=== PATIENT | male | born 2000 | race American Indian/Alaskan Native ===

== ENCOUNTER 2018-01-22 13:58 | Emergency (ER) | payer OTHER ==
[2018-01-22 14:25] VITALS: TEMP 98.7; BMI 23.0
[2018-01-22] MEDS ORDERED: Sodium Chloride 0.9% 1,000 ML IV SCH (15:00)
--- NOTE | 2018-01-22 15:23 | ED PDOC ---
Arrival/HPI - General Chief Complaint: Abdominal Pain Time Seen by Provider: 01/22/18 14:58 Historian: Patient - History of Present Illness Narrative History of Present Illness (Text): 01/22/18 15:32 17 year old male, with no significant past medical history, presents to the Emergency department with epigastric pain described as cramping since this morning. Patient informs associated vomiting and diarrhea. Patient informs black stool since onset. Patient informs similar episodes in the past, which resolved spontaneously. Patient denies any fever, sweats, shortness of breath, cough, chest pain, headache, dizziness, hematemesis, hematochezia, or any other complaints. Time/Duration: 1-3 hours Symptom Onset: Gradual Symptom Course: Unchanged Quality: Aching, Cramping Activities at Onset: Light Context: Home Past Medical History - Provider Review Nursing Documentation Reviewed: Yes - Travel History If Yes, travel location?: [place] - Psychiatric Hx Substance Use: Yes - Surgical History Other/Comment: left wrist fx Family/Social History - Physician Review Nursing Documentation Reviewed: Yes Family/Social History: No Known Family HX Smoking Status: Light Smoker < 10 Cigarettes Daily Hx Alcohol Use: Yes Frequency of alcohol use: Socially Hx Substance Use: Yes Allergies/Home Meds Allergies/Adverse Reactions: Allergies No Known Allergies Allergy (Verified 01/22/18 14:25) Home Medications: Home Meds Medication Instructions Recorded Confirmed No Known Home Med 01/22/18 01/22/18 Review of Systems - Physician Review All systems were reviewed & negative as marked: Yes - Review of Systems Constitutional: absent: Fevers, Night Sweats Respiratory: absent: SOB, Cough Cardiovascular: absent: Chest Pain Gastrointestinal: Abdominal Pain (epigastric), Diarrhea, Nausea, Vomiting (1 episode this morning) Neurological: absent: Headache, Dizziness Physical Exam - Physical Exam Narrative Physical Exam (Text): 01/22/18 15:27 Gen: VS reviewed, alert, well developed, well nourished, nontoxic, mild distress ENT: normal pharynx Eye: EOMI, PERRL Neck: no JVD, supple, no adenopathy CV: regular rate, regular rhythm, no rubs,no murmur, no gallops, S1, S2, pulses equal and strong Pulm: mild to moderate distress, clear to auscultation, no wheeze, no rhonchi, breath sounds equal, no rales Abd: LUQ and epigastric tenderness Ext: no edema Skin: good color, no rash, no cyanosis Psych: responds appropriately to questions, normal affect Neuro: oriented x3, CN2-12 intact grossly, motor intact, sensation intact Vital Signs Reviewed: Yes Vital Signs Temp Pulse Resp BP Pulse Ox 01/22/18 14:19 98.7 F 63 16 116/70 97 Temperature: Afebrile Blood Pressure: Normal Pulse: Regular Respiratory Rate: Normal Appearance: Positive for: Well-Appearing, Non-Toxic, Comfortable Pain Distress: Mild Mental Status: Positive for: Alert and Oriented X 3 Medical Decision Making ED Course and Treatment: 01/22/18 15:30 Impression: 17 year old male presents to the Emergency department with epigastric abdominal pain. Plan: -- CT of abdomen and pelvis -- Labs -- Toradol -- Zofran -- Reassess and disposition Progress Notes: 01/22/18 19:36 patient feels much better and ready to go home. patient was seen for upper abdominal pain, vomiting and diarrhea. CT negative. Patient remained stable throughout ED course and discharged home. Patient to return for any new or worsening symptoms and recommended to follow up with GI. hemoccult negative, stool brown: 1571 7L 08-20 - Lab Interpretations Lab Results: 01/22/18 15:30 01/22/18 15:30 Lab Results 01/22/18 15:30: Sodium 142, Potassium 3.9, Chloride 105, Carbon Dioxide 24, Anion Gap 17, BUN 12, Creatinine 1.0, Est GFR ( Amer) > 60, Est GFR (Non- Af Amer) > 60, Random Glucose 86, Calcium 9.8, Total Bilirubin 0.9, AST 28, ALT 27, Alkaline Phosphatase 55, Total Protein 8.3, Albumin 4.8, Globulin 3.4, Albumin/Globulin Ratio 1.4, Lipase 115 01/22/18 15:30: WBC 3.7 L, RBC 5.22, Hgb 16.5, Hct 45.0, MCV 86.2, MCH 31.6, MCHC 36.7, RDW 12.1, Plt Count 207, MPV 10.1, Gran % 65.8, Lymph % (Auto) 28.0, [place] % (Auto) 5.4, Eos % (Auto) 0.5 L, Baso % (Auto) 0.3, Gran # 2.44, Lymph # ( Auto) 1.0 L, [place] # (Auto) 0.2, Eos # (Auto) 0.0, Baso # (Auto) 0.01 - RAD Interpretation Narrative RAD Interpretations (Text): 01/22/18 19:28 Ct of Abdomen/Pelvis reviewed by radiologist, shows: No acute findings or significant abnormalities are noted within the abdomen and pelvis. Radiology Orders: 01/22/18 14:59 ABDOMEN & PELVIS [ABD PELVIS PO & IV CONTRAST] [CT] Stat [place] Hand: Radiologist - Medication Orders Current Medication Orders: Sodium Chloride (Sodium Chloride 0.9%) 1,000 mls @ 150 mls/hr IV .[id number] ANNETTA Last Admin: 01/22/18 15:20 Dose: 150 mls/hr eMAR Start Stop Document 01/22/18 15:20 EQ (Rec: 01/22/18 15:21 EQ [facility]) Intravenous Solution Start Date 01/22/18 Start Time 15:21 Discontinued Medications Ketorolac Tromethamine (Toradol) 30 mg IVP STAT STA Stop: 01/22/18 15:00 Last Admin: 01/22/18 15:21 Dose: 30 mg MAR Pain Assessment Document 01/22/18 15:21 EQ (Rec: 01/22/18 15:21 EQ [facility] Pain Reassessment Is this a pain reassessment? No Sleep Is patient sleeping during reassessment? No Presence of Pain Presence of Pain Yes IVP Administration Document 01/22/18 15:21 EQ (Rec: 01/22/18 15:21 EQ [facility] Charges for Administration # of IVP Administrations 1 Ondansetron HCl (Zofran Inj) 4 mg IVP STAT STA Stop: 01/22/18 15:00 Last Admin: 01/22/18 15:21 Dose: 4 mg IVP Administration Document 01/22/18 15:21 EQ (Rec: 01/22/18 15:21 EQ [facility] Charges for Administration # of IVP Administrations 1 - Scribe Statement The provider has reviewed the documentation as recorded by the Scribe Pipo Izaguirre, training with Rufino All medical record entries made by the Scribe were at my direction and personally dictated by me. I have reviewed the chart and agree that the record accurately reflects my personal performance of the history, physical exam, medical decision making, and the department course for this patient. I have also personally directed, reviewed, and agree with the discharge instructions and disposition. Disposition/Present on Arrival - Present on Arrival Any Indicators Present on Arrival: No History of DVT/PE: No History of Uncontrolled Diabetes: No Urinary Catheter: No History of Decub. Ulcer: No History Surgical Site Infection Following: None - Disposition Have Diagnosis and Disposition been Completed?: Yes Diagnosis: Abdominal pain Disposition: HOME/ ROUTINE Disposition Time: 19:38 Patient Plan: Discharge Condition: GOOD Discharge Instructions (ExitCare): Acute Abdomen (Belly Pain), Adult (DC) Print Language: INDONESIAN Additional Instructions: Return for any new or worsening symptoms. Follow up with a tip stitcher as discussed. CATRACHO COVARRUBIAS, thank you for letting us take care of you today. Your provider was Dr.Lamont Ballard and you were treated for upper abdominal pain. The emergency medical care you received today was directed at your acute symptoms. If you were prescribed any medication, please fill it and take as directed. It may take several days for your symptoms to resolve. Return to the Emergency Department if your symptoms worsen, do not improve, or if you have any other problems. Please contact your doctor or call one of the physicians/clinics you have been referred to that are listed on the Patient Visit Information form that is included in your discharge packet. Bring any paperwork you were given at discharge with you along with any medications you are taking to your follow up visit. Our treatment cannot replace ongoing medical care by a primary care provider outside of the emergency department. Thank you for allowing the [facility] team to be part of your care today. If you had an X-Ray or CT scan: A Radiologist will review the ED reading if any change in treatment is needed we will contact you. If you had a blood, urine, or wound culture: It will take several days for the results, if any change in treatment is needed we will contact you. If you had an STI test: It will take 48 hours for the results. Please call after 1 week if you have not heard back. Referrals: Mayra Malin MD [Primary Care Provider] - Follow up with primary Quincy Townsend DO [Staff Provider] - Follow up with primary Forms: [employer] (Uruguayan)
[2018-01-22 15:59] LABS: ALB/GLOB RATIO 1.4 (1.1-1.8); ALBUMIN 4.8 g/dL (3.0-4.8); CALCIUM 9.8 mg/dL (8.4-10.5); GFR AFRICAN-AMERICAN > 60; GFR NON-AFRICAN AMERICAN > 60; LIPASE 115 U/L (23-300)
[2018-01-22 16:00] LABS: BASO # 0.01 K/mm3 (0.0-2.0); BASO % 0.3 % (0.0-3.0); EOS % 0.5 % (1.5-5.0); GRAN # 2.44 (1.4-6.5); GRAN % 65.8 % (50.0-68.0); HEMOGLOBIN 16.5 g/dL (14.0-18.0); MEAN CELL VOLUME 86.2 fl (80.0-105.0); MEAN CORPUSCULAR HEMOGLOBIN 31.6 pg (25.0-35.0); MEAN CORPUSCULAR HGB CONC 36.7 g/dl (31.0-37.0); MEAN PLATELET VOLUME 10.1 fl (7.0-11.0); MONO # 0.2 (0.1-0.6); MONO % 5.4 % (1.0-6.0); RBC 5.22 10^6/uL (3.5-6.1); RED CELL DISTRIBUTION WIDTH 12.1 % (11.5-14.5); WHITE BLOOD COUNT 3.7 10^3/ul (4.5-11.0)
[2018-01-22 16:04] LABS: ALT/SGPT 27 U/L (7-56); AST/SGOT 28 U/L (17-59); BLOOD UREA NITROGEN 12 mg/dL (7-21)
[2018-01-22] MEDS ORDERED: Iohexol 240 (50 ml) ONE (16:17)
[2018-01-22] MEDS ORDERED: Iohexol 350 MG/100 ML VIAL ONE (18:18)
[2018-01-22 20:31] VITALS: O2SAT 99
[2018-01-22 20:32] VITALS: BP 125/80; PULSE 64; RESP 18
--- NOTE | 2018-01-23 10:25 | CT ---
Date of service: 01/22/2018 PROCEDURE: CT Abdomen and Pelvis with contrast HISTORY: Abdominal pain. Colitis is suspected. COMPARISON: None. TECHNIQUE: Contrast dose: 100 cc Omnipaque 350. Radiation dose: Total exam DLP = 250.58 mGy-cm. This CT exam was performed using one or more of the following dose reduction techniques: Automated exposure control, adjustment of the mA and/or kV according to patient size, and/or use of iterative reconstruction technique. FINDINGS: LOWER THORAX: Unremarkable. LIVER: Unremarkable. No gross lesion or ductal dilatation. GALLBLADDER AND BILE DUCTS: Unremarkable. PANCREAS: Unremarkable. No gross lesion or ductal dilatation. SPLEEN: Unremarkable. ADRENALS: Unremarkable. No mass. KIDNEYS AND URETERS: Unremarkable. No hydronephrosis. No solid mass. VASCULATURE: Unremarkable. No aortic aneurysm. BOWEL: Unremarkable. No obstruction. No gross mural thickening. APPENDIX: Normal appendix. PERITONEUM: Unremarkable. No free fluid. No free air. LYMPH NODES: Unremarkable. No enlarged lymph nodes. BLADDER: Unremarkable. REPRODUCTIVE: Unremarkable. BONES: No acute fracture. OTHER FINDINGS: None. IMPRESSION: No significant or acute findings to account for/ related to the clinical presentation. Concordant results (preliminary interpretation) provided by [facility]. Procedure Completed: 18:28. Preliminary ([facility]) Report: Dictated and Authenticated: 19:22. Final Interpretation: 10:23. January 23, 2018.
== END 2018-01-22 20:00 | disposition home or self-care (01) ==
LOC: ED 13:58 → MERGE 13:58 → ED 20:00
DX: R10.9 Unspecified abdominal pain (principal)
CPT/HCPCS: 74177; 80053; 83690; 85025; 96374; 96375; 99283; J1885; J2405; J7030; Q9966; Q9967